=== PATIENT | female | born 1955 | race Caucasian/White ===

== ENCOUNTER 2016-08-09 06:23 | Day surgery (SDC) | payer OTHER ==
[2016-08-09] VITALS (13 sets, daily range): BP systolic 100–130; BP diastolic 60–80; PULSE 60–105; RESP 11–16; O2SAT 96–100
[~2016-08-09] VITALS: Ht 157.5 cm; Wt 70.5 kg
[~2016-08-09 06:23] MED LIST: ASA/1TAB3 PO; BISA-67 PO; CHOL100045 PO; CeFAZolin Inj 2 GM in IV Premix 1 EACH IV ONE; Lactated Ringer's 1,000 ML IV ONE; Phenazopyridine 97.5 mg Tablet PO ONE
[2016-08-09] MEDS ORDERED: Propofol 10,000 mCg/mL 20 mL Inj ONE (06:24)
[2016-08-09] MEDS ORDERED: Ondansetron 2 mg/mL 2 mL Inj ONE (06:24)
[2016-08-09] MEDS ORDERED: fentaNYL-PF 50 mCg/mL 2 mL Inj ONE (06:24)
[2016-08-09] MEDS ORDERED: Dexamethasone 4 mg/mL Inj ONE (06:24)
--- NOTE | 2016-08-09 08:16 | PCM.HPANE ---
Patient Data Surgeon Admitting Provider: Attending Provider:Adilson Jimenez MD Primary Care Physician:Brianda Solorio MD Other Provider:[facility] Reason for Visit Cystocele,Vault Prolapse,Rectocele,Stress Incontin Ht/WT & BMI Height (Feet): 5 Height (Inches): 2.00 Weight (Kilograms): 70.5 Body Mass Index 28.00 Allergies Coded Allergies: codeine (Verified Adverse Reaction, Severe, NAUSEA, 08/04/16) erythromycin base (Verified Adverse Reaction, Severe, Nausea, 08/04/16) Past Anesthesia History Anesthesia History: Denies:: Abnormal Airway, Anesthesia Reactions, Difficult Intubation, Fam Anesthesia Reaction, Fam Malignant Hypertherm, Malignant Hyperthermia Diabetes History Hx Diabetes?: No MRSA MRSA: No Medications Home Meds Incl Beta Paul: No Reported Medications Cholecalciferol (Vitamin D3) (Vitamin D)1,000 Unit Capsule1,000 Unit PO DAILY # 1 BOTTLE Ref 0 08/04/16 ASA/Acetaminophn/Mag/Alh/Caff (Vanquish Caplet)1 Each Tablet1 Each PO DAILY PRN PRN 08/04/16 Bisacodyl (Dulcolax)5 Mg Tablet.dr5-10 Mg PO DAILY PRN For Constipation Ref 0 08/04/16 Discontinued Reported Medications Zoster Vaccine Live/Pf (Zostavax Vial)19,400 Unit Vial19,400 Unit SQ 11/18/14 [vitamin d] No Conflict Check 11/18/14 Multivitamin with Minerals (Multiple Vitamin)1 Each Tablet1 Each PO DAILY 11/18/14 Calcium Carbonate (Calcium)600 Mg [id number] Mg PO DAILY 11/18/14 History History of ENT Problems?: Yes HEENT History: Denies:: Abnormal Airway Difficult Intubation Dysphagia Hearing Problem Other HEENT Pertinent History: S/P TONSILLECTOMY Hx of Heart Problems?: Yes Cardiovascular History: Denies:: AICD Heart Murmur Hypertension (HYPERLIPIDEMIA) Pacemaker Valvular Heart Disease Hx of Respiratory Problem?: No Respiratory History: Positive for:: Use of C-PAP Machine (GAVIOTA+ W/ CPAP SLEEP STUDY 01/2011) Hx Neurologic Problems?: Yes Neurological History: Positive for:: Headaches Denies:: CVA Hx of GI Problems?: Yes Gastrointestinal History: Denies:: Diverticulitis (DIVERTICULOSIS) Gastroesphageal Reflux Rectal Bleeding Hx of Problems?: Yes Other Pertinent History: ATROPHIC VAQGINITIS Female Hx: Positive for:: Problems with Breasts? (S/P BREAST BX'S X4 FOR FIBROCYSTIC DISEASE) Denies:: Currently Skin History: Positive for:: History Skin Disorders? (S/P EXC SQUAMOUS CELL CA CHEST) Denies:: Pressure Ulcers Hx Musculoskeletal Problems?: Yes Musculoskeletal History: Positive for:: Musculoskeletal Trauma (HX "FROZEN" SHOULDER) Hx of Psycho/Social Problems?: No Hx Surgeries?: Yes (VAG. HYST,BREAST BX X4,EXC SCC,TONSILLECTOMY) Hx Any Other Health Problems?: Yes Other History: Positive for:: Cancer (SQUAMOUS CELL CA-CHEST) Thyroid Disease (HX THYROID NODULE) Denies:: Hospitalization History Blood Transfusions: Positive for:: Accept Blood Products? Denies:: Blood Transfusions Hx Diabetes: No Hx Alcohol Use: YesAlcoholic Drinks Per Day: 3/WEEKHx Substance Use: No Smoking Status: Never Smoker Have You Smoked inLast 12 mo: No Stop/Bang Do You Have a CPAP Machine?: Yes S-Snoring: Do You Snore Loudly: No T-Tired: feel tired, fatigued: No O-Obsered: Observed not breath: No P-Blood Pressure: treated: No B- Body Mass Index > 35 kg/m2: No A- Age over 50: Yes N- Neck Large Circumference: No G- Gender Male: No GAVIOTA Total Score: 1 GAVIOTA Category 1: Yes Risk Assessment Category Category 1A: Patient has history of documented sleep apnea, and HAS NOT received any narcotic, sedative or anesthesia administration during this stay. Category 1B: Patient has history of documented sleep apnea, and HAS received any narcotic , sedative or anesthesia administration during this stay Category 2: Patient has SUSPECTED Obstructive Sleep Apnea, and HAS received any narcotic , sedative or anesthesia administration during this stay. Category 3: Patient has SUSPECTED Obstructive Sleep Apnea and HAS NOT received narcotic, sedative or anesthesia administration during this stay. Category 4: Outpatient in Procedural Areas with known sleep apnea or who screen positive for High Risk via the STOP/BANG questionnaire. Exam Exam Vital Signs Vital Signs Date Time Temp Pulse Resp B/P Pulse Ox O2 Delivery O2 Flow Rate FiO2 08/09/16 06:44 CPAP/BIPAP 08/09/16 06:43 36.4 60 16 125/70 100 Room Air General Appearance: Alert HEENT/AIRWAY: MP 1 Lungs: Clear to Auscultation Heart: Exam Unremarkable Meds/Labs/Diagnostics Admission Meds Current Medications Phenazopyridine HCl 2 tab 2 tab PREOP ONCE PO Last administered on 08/09/16 07:56; Start 08/09/16 at 06:00; Stop 08/09/16 at 06:01; Status DC Lactated Ringer's (Lr) 1,000 ml @ ud STK-MED ONCE IV Last administered on 08/09 05:59; Start 08/09/16 at 05:59; Stop 08/09/16 at 06:00; Status DC Plan Impression Patient chart reviewed, patient interviewed and anesthestic plan with risks, benefits, and alternatives discussed, and informed consent obtained. NPO Status: 08/07 ASA Physical Status: ASA1 Normal Healthy Anesthetic Plan: GA Bene/Risks/Altern/Consents: Yes HP Complete Prior to Induction: Yes Hugo Stephens MD Aug 09, 2016 08:16
[2016-08-09] MEDS ORDERED: Lactated Ringer's 500 ML IV PRN (08:24)
[2016-08-09] MEDS ORDERED: Lactated Ringer's 1,000 ML IV SCH (08:24)
[2016-08-09] MEDS ORDERED: Labetalol 5 mg/mL 4 mL Inj IV PRN (08:25)
[2016-08-09] MEDS ORDERED: fentaNYL-PF 50 mCg/mL 2 mL Inj IVPUSH PRN (08:25)
[2016-08-09] MEDS ORDERED: Phenylephrine 10,000 mCg/mL Inj IVPUSH PRN (08:25)
[2016-08-09] MEDS ORDERED: HYDROmorphone 1 mg/mL Inj IVPUSH PRN (08:25)
[2016-08-09] MEDS ORDERED: Atropine 0.4 mg/mL Inj IVPUSH PRN (08:25)
[2016-08-09] MEDS ORDERED: Ondansetron 2 mg/mL 2 mL Inj IVPUSH PRN (08:25)
[2016-08-09] MEDS ORDERED: EPHEDrine Sulfate 50 mg/mL Inj IVPUSH PRN (08:25)
[2016-08-09] MEDS ORDERED: MetoCLOpramide 5 mg/mL 2 mL Inj IVPUSH PRN ×2 (08:25→12:40)
[2016-08-09] MEDS ORDERED: Dexamethasone 4 mg/mL Inj IVPUSH PRN (08:25)
[2016-08-09] MEDS ORDERED: Lidocaine 1%-Epi 1:100,000 20 mL Inj INFILTRATE ONE (08:54)
[2016-08-09] MEDS ORDERED: Sodium Chloride LOK Flush 10 mL Syringe XX ONE (09:05)
[2016-08-09] MEDS ORDERED: Gentamicin 40 mg/mL 2 mL Inj IRRIGATION ONE ×2 (09:05→11:37)
[2016-08-09] MEDS ORDERED: Lactated Ringer's 1,000 ML IV ONE (11:17)
[2016-08-09] MEDS ORDERED: Gentamicin 40 mg/mL 2 mL Inj IV ONE ×2 (11:38)
[2016-08-09] MEDS ORDERED: Estrogens Conjugated 30 Gm Vaginal Cream VAGINAL ONE (12:16)
--- NOTE | 2016-08-09 12:30 | PCM.ANEP1 ---
Post Anesthesia Phase 1 PACU Phase 1 Assessment Vital Signs Vital Signs Date Time Temp Pulse Resp B/P Pulse Ox O2 Delivery O2 Flow Rate FiO2 08/09/16 06:44 CPAP/BIPAP 08/09/16 06:43 36.4 60 16 125/70 100 Room Air Anesthetic Administered: GA Level of Alertness: Awake, talking JAQUEZ's with Equal Strength: Yes Pain: Yes Nausea or Vomiting: No Oxygen Delivery: Simple Mask Lungs: Clear to Auscultation Dermatome Level: Full Sensation Summary t 36 p74 sat 100 rr15 bp 108/67 Hugo Stephens MD Aug 09, 2016 12:30
[2016-08-09] MEDS ORDERED: Alum-Mag Hydrox-Simeth 30 mL Suspension PO PRN (12:40)
[2016-08-09] MEDS ORDERED: diphenhydrAMINE 25 mg Capsule PO PRN (12:45)
[2016-08-09] MEDS: Lactated Ringer's 1,000 ML IV SCH ×2 (13:55→21:42)
[2016-08-09] MEDS: Ondansetron 2 mg/mL 2 mL Inj IVPUSH PRN (16:21)
[2016-08-09] MEDS: Acetaminophen IV 1,000 MG in IV Premix 1 EACH IV SCH ×2 (16:22→18:40)
--- NOTE | 2016-08-09 16:55 | PCM.ANEP2 ---
Post Anesthesia Evaluation ASA/CMS Post Anesthesia VS in Patient's Normal Range?: Yes Resp Stable; Airway Patent?: Yes CV Function & Hydration Stable: Yes Mental Status Recovered?: Yes Pain control Satisfactory?: Yes N/V Control Satisfactory?: Yes Hugo Stephens MD Aug 09, 2016 16:55
--- NOTE | 2016-08-09 19:35 | NUR ---
Arrival to 1001 Pt transferred to 1001 at 1350 from PACU. Pt denies pain at this time and only complains of being cold and shivering. Warm blankets applied and Kpad placed on abdomen. Vaginal packing is in place with no drainage. Pt is alert and oriented and JAQUEZ with equal strength. Syed patent and draining to gravity orange urine.
--- NOTE | 2016-08-09 20:08 | PCM.SURGOP ---
Surgical Operative Report Date of Service: Aug 09, 2016 Pre Operative Diagnosis 1, Vaginal vault prolapse 2. Stress incontinence in female N39.3 (625.6): urodynamic stress incontinence. 3. Cystocele, midline N81.11 (618.01): 4. Rectocele N81.6 (618.04): Post Operative Diagnosis 1. Stress incontinence in female N39.3 (625.6): urodynamic stress incontinence. 2. POPQ stage 2 Vaginal vault prolapse/enterocele/Cystocele/Rectocele 3. Deficient pubocervical/pubovesical fascia Procedure: 1. anterior repair with Xenform graft augmentation 2. posterior repair 3. high uterosacral ligament vaginal vault suspension and enterocele repair 4. TVT-obturator sling and cystoscopy Surgeon and Cuff Stitcher: Surgeon: Adilson Jimenez MD Assistants: Nicolasa Iglesias MD Indication for Procedure Her assessment to date includes: 1. Vaginal vault prolapse 2. Stress incontinence in female N39.3 (625.6): urodynamic stress incontinence. 3. Cystocele, midline N81.11 (618.01): 4. Rectocele N81.6 (618.04): The patient is a candidate for surgical management in the form of anterior repair and posterior repair with possible biologic graft augmentation, with possible high uterosacral ligament vaginal vault suspension and enterocele repair and TVT-obturator sling. The patient signed the consent form. She agreed with the risks, benefits, and alternatives to surgery. The risks included but not limited to recurrence or persistence of prolapse, recurrence of persistence of incontinence, development of voiding dysfunction, development of urinary urgency, urgency incontinence, frequency, and need for intermittent self-catheterization or prolonged indwelling catheterization, injury to other organs including bladder, bowel, nerves or blood vessels. Need for blood transfusion, need for temporary colostomy or urinary stenting. Development of vaginal scarring, dyspareunia, defecatory dysfunction, recurring pain, hematoma formation, urinary tract infection, cellulitis, necrotizing fascitis, and medical risks including myocardial infarction, stroke or VTE. She also understood the FDA warnings associated with the use of vaginal mesh (dysparunia, vaginal erosion, erosion into bowel/bladder/urethra, requiring further surgery to correct these complications). The patient understood the risks and benefits and consented to surgery. Findings: see dictation Procedure Details SURGICAL TECHNIQUE: The patient was brought to the operating room and was placed under general anesthesia. She was prepped and draped in the normal fashion for vaginal surgery with the legs in Yellofin stirrups. Also, her hips were allowed to deflex periodically during the case to avoid any pressure on the nerves and lower limb joints. She was given a dose of IV Ancef intraoperatively. She was given 200 mg oral pyridium prior to surgery. EUA revealed a POPQ stage 2 anterior, apical and posterior vaginal prolapse to the hymen. Also the vaginal caliber allowed the insertion of 2 gloved fingers spread apart. 1. Anterior colporrhaphy with Xenform graft augmentation: Lidocaine 0.5% with 1 /21257 epinephrine was infiltrated along the anterior vaginal wall mucosa. A midline vertical incision was made through the anterior vaginal wall. The vaginal wall was dissected off the underlying pubocervical and pubovesical fascia. The dissection was extended laterally beyond the ischiopubic rami. Bilateral paravaginal defects were noted. It was noted that the pubocervical and pubovesical fascial tissues were deficient. During the dissection along the apex, an enterocele sac was entered with sharp dissection. This was aided with the use of a gloved finger in the rectum to avoid penetrating the rectal mucosa. The rest of the anterior repair would be completed later in the procedure. 2. High uterosacral ligament vaginal vault suspension and enterocele repair, cystoscopy: Several mini laparotomy sponges were packed to retract the bowel upwards. A pair of Allis clamps were placed along the intraperitoneal portions of the vagina at the 5 and 7 o'clock positions. Tension along these Allis clamps allowed for identification of the uterosacral ligaments bilaterally. The ureters were palpated to avoid penetrating them. A pair of 0 Vicryl sutures were passed around the uterosacral ligaments of the level of the ischial spines bilaterally, totalling 4. Cystoscopy was performed while tension was placed on the vault sutures. Cystoscopy revealed the presence of spillage of pyridium-stained urine at both ureteric orifices despite applying tension along the uterosacral ligament sutures. Next, one 3-0 Prolene suture was placed transversely through the cul-de-sac peritoneum. This was performed while using a gloved finger in the rectum as to avoid penetrating the underlying rectal mucosa. Tying these sutures obliterated the enterocele. The remainder of the anterior repair was then completed as follows: The cystocele was plicated in 2 layers, the first layer with 2-0 Vicryl suture in interrupted fashion, the second layer with 2-0 Tycron suture in an interrupted fashion. Bleeding along the right paravaginal space was controlled using 2-0 vicryl suture. A trapezoidal piece of Xenform graft was then incorporated atop the plicated area far laterally. The graft was secured far laterally into the obturator internus membrane. At the level of the bladder neck, an upside down triangular piece of graft was excised so that there was no excessive-support along the level of the bladder neck. Apically, the graft was passed through the proximal uterosacral ligament sutures. No anterior vaginal mucosa was required to be excised. The high uterosacral ligament vaginal vault suspension sutures were passed through the planned apex of the vagina. The vagina was then reapproximated using 3-0 Vicryl suture in a running locked fashion. The high uterosacral ligament vaginal vault suspension sutures were tied and this elevated the apex of the vagina high up into the hollow of the sacrum. 3. Posterior colpoperineorrhaphy: Examination under anesthesia revealed that the posterior segment descended to the hymen (POPQ Stage 2). Lidocaine 0.5% with 1:50,000 of epinephrine was infiltrated along the posterior vaginal wall mucosa. A midline incision was made through the posterior vagina with a scalpel (no incision was made through the perineum. A perineorrhaphy was not necessary). 100 mg IV gentamicin was given as stool was expelled through the anus. The area was irrigated with copious fluid. The vaginal mucosa was dissected off the underlying rectovaginal tissues. It was noted the rectovaginal fascial tissues were not thin and deficient. The rectocele was plicated in one layer using 2-0 Vicryl suture in an interrupted fashion. No excess posterior vaginal mucosa needed to be excised. The vagina was then reapproximated using 3-0 Vicryl suture in a running locked fashion. 4. Tension-free vaginal tape obturator sling and cystoscopy: Lidocaine 0.5% with 1/93954 epinephrine was infiltrated along the anterior vaginal wall mucosa at the level of the mid urethra. Midline vertical incision was made at that level, 2 periurethral tunnels were created with Metzenbaum scissors. Two stab incisions were created at the skin at the groin at a level 2 cm superior to the external urethral meatus and 2 cm lateral to the fold created between the vulva and thigh. Syed catheter had already been inserted. A butterfly guide was inserted into the right periurethral tunnel, a curved helical needle was inserted on top of the guide and rotated out to the ipsilateral skin incision. The same procedure was performed on the contralateral side. Next the Syed catheter was removed. Cystoscopy was performed. There was no inadvertent penetration of the sling to the vagina, urethra or bladder. In addition, the ureteric orifices were noted bilaterally and were noted to be functional by the brisk spillage of pyridium-stained urine. The bladder appeared normal. The plastic sheaths of the sling were removed. The bladder was filled with 300 mL of sterile water. Using the Crede maneuver, sling tension was appropriately adjusted. Also a larger right angle clamp was allowed to easily pass behind the sling so that the sling was placed in a tension-free manner. The sling ends were cut at the level of the skin. The skin was reapproximated using Mastisol, Steri-Strips and band-aids. The vagina was reapproximated using 3-0 Vicryl suture in a running fashion. EUA revealed that the vaginal caliber allowed the insertion of 2 gloved fingers spread apart. The caliber was not any more narrow than that at the beginning of the case. The vagina was packed with Premarin-lubricated gauze. The estimated blood loss was approximately 350 mL. There were no complications All sponges and instruments were accounted for. The patient was taken to the recovery room in stable condition. Complications There were no periprocedural complications identified. Surgical Specimen Removed: No Specimen sent to Pathology: No Anesthetic Plan: GA Grafts, Implants: Grafts-See Implant Record, Implants-See Implant Record Output, Estimated Blood Loss: 350 (ml) Blood Administration during castro: No Drains: None Catheters: Urethral 2 Way Syed Post Operative Plan overnight stay in bed as outpatient as she requires a voiding trial in the am copies to: Nicolasa Iglesias MD; Brianda Solorio MD; Adilson Jimenez MD, William Andre Z MD Aug 09, 2016 20:08
[2016-08-09] MEDS: oxyCODONE-Acetamin 5-325 mg Tablet PO PRN (22:29)
[2016-08-10 00:44] VITALS: BP 97/60; PULSE 108; RESP 16; O2SAT 97
[2016-08-10] MEDS: Acetaminophen IV 1,000 MG in IV Premix 1 EACH IV SCH (01:23)
--- NOTE | 2016-08-10 04:16 | NUR ---
Pain Patient denies pain at this time, given IV Tylenol and Percocet one tab. Minimal drainage noted. Sleeping comfortably through out shift. Voiding trial to be done at 1000 this am .
[2016-08-10 04:19] VITALS: BP 99/62; PULSE 101; RESP 16; O2SAT 96
[2016-08-10] MEDS: Lactated Ringer's 1,000 ML IV SCH ×2 (04:38→09:19)
[2016-08-10 05:21] LABS: BASOPHILS % (AUTO) 0.1 % (0-3); EOSINOPHILS % (AUTO) 0 % (0-5); MONOCYTES % (AUTO) 9.6 % (4-12); Mean Corpuscular Hemoglobin 29.3 pg (27.0-35.0); Mean Corpuscular Volume 90.8 fL (81-100); NEUTROPHILS % (AUTO) 69.2 % (40-74); Platelet Count 171 bil/L (150-400)
[2016-08-10] MEDS: oxyCODONE-Acetamin 5-325 mg Tablet PO PRN ×2 (06:17→12:55)
[2016-08-10] MEDS ORDERED: Senna-Docusate 8.6-50 mg Tablet PO SCH (08:30)
[2016-08-10] MEDS ORDERED: Heparin 5,000 Unit/mL Inj SUBQ SCH (08:30)
[2016-08-10 09:04] VITALS: BP 106/69; PULSE 94; RESP 16; O2SAT 96
[2016-08-10] MEDS: Ondansetron 2 mg/mL 2 mL Inj IVPUSH PRN (09:35)
[2016-08-10 10:38] VITALS: BP 119/76
[2016-08-10 10:39] VITALS: BP_SYST 111; BP_SYST 120; BP_DIAS 73; BP_DIAS 75
--- NOTE | 2016-08-10 11:11 | PCM.PNSURG ---
Subjective Date of Service: Aug 10, 2016 Date of Service: Aug 10, 2016 Visit Information: Reason for Visit Cystocele,Vault Prolapse,Rectocele,Stress Incontin Surgery/Surgery Date ANTERIOR/POSTERIOR REPAIR 08/09/16 Post-Op Day # 1 Subjective: AVSS sitting up to side of bed nausea when trying to ambulate this am - just given Zofran pain control - good with Percocet 1 tab q4h prn sips/liquid tolerated OR explained Pain Management: PO Objective Vital Sign- Last 8 Hours Date Time Temp Pulse Resp B/P Pulse Ox O2 Delivery O2 Flow Rate FiO2 08/10/16 10:39 120/75 08/10/16 10:39 111/73 08/10/16 10:38 119/76 08/10/16 09:04 36.8 94 16 106/69 96 08/10/16 04:51 CPAP/BIPAP 08/10/16 04:19 36.7 101 16 99/62 96 Room Air Intake and Output- Last 8 Hour 08/10/16 Cumulative From/Thru 07:00 08/04/16 17:10 - 08/10/16 05:58 Intake Total 920 ml 4396 ml Output Total 1325 ml 3055 ml Balance -405 ml 1341 ml Intake Oral 400 ml 600 ml IV Total 520 ml 3796 ml Output Urine Total 1325 ml 2355 ml Estimated Blood Loss 700 ml # Bowel Movements 0 0 General: Alert, Oriented X3, Cooperative Lungs: Clear to Auscultation Abdomen: Benign Catheters: Urethral 2 Way Syed Result Diagram: 08/10/16 050 Assessment & Plan Impression Iron-deficiency anemia secondary to blood loss Post-op nausea POD#1, otherwise stable Problems: Plan Repeat H&H at 11 am - start iron pills once BM's established voiding trial once ambulating well maximize nausea treatment discharge later today once stable VTE Prophylaxis: Sub-Q Heparin (Unfractionated) Resuscitation Status: CPR: Attempt Resuscitation copies to: Adilson Jimenez MD, William Andre Z MD Aug 10, 2016 11:11
--- NOTE | 2016-08-10 11:18 | PCM.DIGYN ---
Surgical Discharge Instruction Dates of Hospitalization Date of Hospital Admission 317 overnight stay in bed for observation Providers Admitting Physician: Primary Care Physician: Brianda Solorio MD Attending Physician: Adilson Jimenez MD Diagnosis at Time of Discharge Diagnosis at time of discharge 1. Stress incontinence in female N39.3 (625.6): urodynamic stress incontinence. 2. POPQ stage 2 Vaginal vault prolapse/enterocele/Cystocele/Rectocele 3. Deficient pubocervical/pubovesical fascia 4. iron-deficiency anemia secondary to blood loss Post-operative diagnosis 1. Stress incontinence in female N39.3 (625.6): urodynamic stress incontinence. 2. POPQ stage 2 Vaginal vault prolapse/enterocele/Cystocele/Rectocele 3. Deficient pubocervical/pubovesical fascia Problems: Diet Discharge Diet: No restrictions Activity Discharge Activity-General: Restrict lifting to no greater than (10lbs for 6 wk ) Dressing and Incisional Care Dressing Care: Allow Steri Stripes to fall off Hygiene: May shower Follow Up Plan Follow-up appointment: Weeks Call your provider for: Fever, Chills, Shortness of breath, Vomitting, Heavy vaginal bleeding, Wound redness, Increasing pain Adilson Jimenez MD Aug 10, 2016 11:18
[2016-08-10 13:10] VITALS: BP 123/73; PULSE 91; RESP 18; O2SAT 96
--- NOTE | 2016-08-10 20:28 | NUR ---
D/C Pt d/c'd with spouse via wheelchair at 1600. Pt left with gutiérrez catheter in place and plugged. Hard copies of Rx with pt, IV D/C'd intact, vaginal packing removed, all pt belongings with pt, pt signed and stated understanding of d/c information including catheter care.
== END 2016-08-10 16:35 | disposition home or self-care (01) ==
LOC: SAS 06:23 → OSC 13:55 → SAS 08-10 16:35
PROVIDERS: ATTEND Obstetrics & Gynecology
DX: N99.3 Prolapse of vaginal vault after hysterectomy (principal); N39.3 Stress incontinence (female) (male); R14.3 Flatulence; G47.33 Obstructive sleep apnea (adult) (pediatric); E78.00 Pure hypercholesterolemia, unspecified; G25.81 Restless legs syndrome; N95.2 Postmenopausal atrophic vaginitis; E78.5 Hyperlipidemia, unspecified; K21.9 Gastro-esophageal reflux disease without esophagitis; K57.30 Diverticulosis of large intestine without perforation or abscess without bleeding; Z90.710 Acquired absence of both cervix and uterus
CPT/HCPCS: 36415; 57265; 57267; 57283; 57288; 85014; 85018; 85025; 86850; 96374; 96375; C1763; C1771; J0131; J0690; J1100; J1580; J1644; J2250; J2270; J2405; J2765; J3010; J7120

== ENCOUNTER 2016-09-07 00:25 | Emergency (ER) | payer OTHER ==
[~2016-09-07] VITALS: Ht 157.5 cm; Wt 69.1 kg
[~2016-09-07 00:25] MED LIST changes: -CeFAZolin Inj 2 GM in IV Premix 1 EACH IV ONE; -Lactated Ringer's 1,000 ML IV ONE; -Phenazopyridine 97.5 mg Tablet PO ONE
[2016-09-07 00:27] VITALS: BP 123/77; PULSE 79; RESP 16; O2SAT 97
--- NOTE | 2016-09-07 00:29 | ED.REPORT ---
HPI-Abd Pain F 40 and Over Date of Service Sep 07, 2016 ED Provider: Eliceo Carballo MD 60 year old female presents to the ER accompanied by her complaining of dysuria onset today. Associated symptoms include urinary frequency and foul smelling urine. Patient denies fever or chills. She had a bladder sling placed recently and had her catheter removed 4 days ago. She has been on a course of Macrodantin that she was told to cease with catheter removal. Nursing Notes Stated Complaint: UTI Chief Complaint: Female Abdominal Pain Nursing Notes Reviewed: Yes Allergies: Coded Allergies: codeine (Verified Adverse Reaction, Severe, NAUSEA, 09/07/16) erythromycin base (Verified Adverse Reaction, Severe, Nausea, 09/07/16) Scheduled Cefuroxime Axetil (Cefuroxime) 500 Mg Tablet 500 MG PO BID Cholecalciferol (Vitamin D3) (Vitamin D) 1,000 Unit Capsule 1,000 UNIT PO DAILY Scheduled PRN ASA/Acetaminophn/Mag/Alh/Caff (Vanquish Caplet) 1 Each Tablet 1 EACH PO DAILY PRN PRN PRN Bisacodyl (Dulcolax) 5 Mg Tablet.dr 5-10 MG PO DAILY PRN PRN For Constipation Phenazopyridine (Phenazopyridine) 200 Mg Tablet 200 MG PO TID PRN PRN dysuria General Time Seen by MD: 00:29 Chief Complaint Dysuria Hx Obtained From: Patient Arrived By: Walk-in Sudden in Onset?: No Onset Occurred: 9 - 12 hours ago Associated with: Reports: Urinary frequency, Denies: Fever Recent Healthcare: Recent doctor visit Similar Sx Previous: No Past Medical History Past Medical History Squamous cell CA chest Thyroid disease Past Surgical History Bladder sling Reports: Hysterectomy Smoking History Never Smoker Social History Alcohol Use: 1-3 per week Ambulatory Status Independent Review of Systems +Foul Smelling Urine Constitutional: Denies: Chills, Fever GI: Denies: Abdominal pain, Diarrhea, Nausea, Vomiting Female: Reports: Dysuria, Urinary frequency Complete sys rev & neg: except as marked. Physical Exam Vital Signs Vital Signs (First) Date Time Temp Pulse Resp B/P Pulse Ox O2 Delivery O2 Flow Rate FiO2 09/07/16 00:27 36.2 79 16 123/77 97 Room Air Initial VS: Reviewed Head / Eyes: Atraumatic, Normocephalic Neck: Supple, Non-tender, Full range of motion Extremities: Vascular intact, Neuro intact, No swelling, No tenderness Skin: Warm, Dry, No cyanosis Neurologic: Alert, Oriented, Nonfocal Psychiatric: Mood/affect normal, Behavior normal, Normal thought content General/Constitutional: Awake, Alert, Well developed, Well nourished Respiratory / Chest: Breath sounds NL, Breath sounds = bilat, No respiratory distress, No rales, No rhonchi, No wheezing, No stridor Cardiovascular: Heart rate NL, Regular rhythm, Heart sounds NL, Peripheral circulation NL Abdomen: Soft, Non-tender, No guarding, No rebound, No distention Back: Inspection NL, Non-tender, No CVA tenderness Interpretation & Diagnostics Lab Results Interpretation Result Diagram: 09/07/16 0120 09/07/16 0120 Test 09/07/16 01:05 09/07/16 01:20 Urine Color Straw (YELLOW) Urine Appearance Hazy (CLEAR,HAZY) Urine pH 7.5 (5.0-8.0) Urine Specific Sargeant 1.010 (1.003-1.035) Urine Protein Negativemg/dL (NEG,TRACE) Urine Glucose (UA) Negativemg/dL (NEGATIVE) Urine Ketones Negativemg/dL (NEGATIVE) Urine Occult Blood Trace (NEGATIVE) Urine Nitrite Negative (NEGATIVE) Urine Bilirubin Negative (NEGATIVE) Urine Urobilinogen Normalmg/dL (NORMAL) Urine Leukocyte Esterase Moderate (NEGATIVE) Urine RBC 3-10/hpf (0-2) Urine WBC >50/hpf (0-5) Urine Epithelial Cells Occasional/hpf (NONE-MOD) Urine Crystals None seen (NONE SEEN) Urine Bacteria Many/hpf (NONE-FEW) Urine Hyaline Casts None/lpf (NONE) Urine Granular Casts None seen (NONE SEEN) Urine Waxy Casts None seen (NONE SEEN) Urine Red Blood Cell Casts None seen (NONE SEEN) Urine White Blood Cell Casts None seen (NONE SEEN) Urine Mucus None seen (None Seen) Urine Trichomonas None seen (NONE SEEN) Urine Yeast None (NONE SEEN) Urinalysis Comment None Urine Culture Reflexed Indicated White Blood Count 9.3th/mm3 (3.8-10.1) Red Blood Count 4.03mil/mm3 (3.90-5.20) Hemoglobin 12.0g/dL (12.0-15.6) Hematocrit 36.9% (35.0-46.0) Mean Corpuscular Volume 91.6fL (81-100) Mean Corpuscular Hemoglobin 29.8pg (27.0-35.0) Mean Corpuscular Hemoglobin Concent 32.5% (32.0-37.0) Red Cell Distribution Width 13.4% (12.3-15.4) Platelet Count 248bil/L (150-400) Neutrophils (%) (Auto) 57.9% (40-74) Lymphocytes (%) (Auto) 33.2% (14-46) Monocytes (%) (Auto) 6.7% (4-12) Eosinophils (%) (Auto) 1.6% (0-5) Basophils (%) (Auto) 0.4% (0-3) Sodium Level 139mEq/L (134-144) Potassium Level 4.5mEq/L (3.5-5.2) Chloride Level 100mEq/L (97-108) Carbon Dioxide Level 24mmol/L (18-29) Blood Urea Nitrogen 18mg/dL (8-27) Creatinine 0.83mg/dL (0.57-1.00) Estimat Glomerular Filtration Rate 100mL/min (>59) Glucose Level 114mg/dL (60-99) Calcium Level 9.4mg/dL (8.5-10.1) Magnesium Level 2.3mg/dL (1.6-2.6) Total Bilirubin 0.3mg/dL (0.0-1.2) Aspartate Amino Transf (AST/SGOT) 19U/L (0-50) Alanine Aminotransferase (ALT/SGPT) 18U/L (0-32) Alkaline Phosphatase 80U/L (25-165) Total Protein 7.2g/dL (6.4-8.4) Albumin 4.4g/dL (3.4-5.0) Lipase 40U/L (13-60) Hold Pandya Top Tube Received (Received) Re-Eval/Medical Decision Med Decision/Clinical Course 60-year-old just post Syed removal after a bladder sling operation. She has unequivocal urinary tract infection by UA and consistent symptoms. No upper tract symptoms and no fever. Begun with 2 g load of Rocephin here, given that this was procedurally acquired infection. Continue with Ceftin twice a day pending cultures. Discharged in stable condition with Ceftin and Pyridium for comfort. Source of Hx: Old records Re-Evaluation/Progress : Time of Eval: 00:58 Re-Evaluation/Progress Note: Discussed plan to discharge pending lab results. Patient is amenable to the plan. Return precautions given. All other questions addressed. Counseled Regarding: Diagnosis, Lab results, Need for follow-up, When/why to return to ED Discharge & Departure Primary Impression: UTI (urinary tract infection) Disposition: Home Discharge Condition All VS Reviewed: Yes Condition: Stable Patient Instructions: Urinary Tract Infection in Women (DC) Additional Instructions: Ceftin twice daily. Pyridium three times daily if needed for discomfort. Follow-up with your surgeon in the office. Follow-up with your regular doctor also. Return if any immediate issues. Referrals: Brianda Solorio MD (PCP) Scribe Attestation Portions of this note were transcribed by Reno Zurita. I, Dr. Carballo, personally performed the history, physical exam and medical decision-making; I reviewed and confirmed the accuracy of the information in the transcribed note. Signed by: Delilah Swain, 09/07/2016 at 02:52 copies to: Brianda Solorio MD, Christopher W MD Sep 07, 2016 00:29 RENO ZURITA Sep 07, 2016 00:46
[2016-09-07] MEDS ORDERED: cefTRIAXone Inj 2,000 MG in Dextrose 5% Minibag Plus 50 ML IV ONE (01:00)
[2016-09-07] MEDS ORDERED: Phenazopyridine 97.5 mg Tablet PO ONE (01:20)
[2016-09-07 01:25] LABS: BASOPHILS % (AUTO) 0.4 % (0-3); EOSINOPHILS % (AUTO) 1.6 % (0-5); MONOCYTES % (AUTO) 6.7 % (4-12); Mean Corpuscular Hemoglobin 29.8 pg (27.0-35.0); Mean Corpuscular Volume 91.6 fL (81-100); NEUTROPHILS % (AUTO) 57.9 % (40-74); Platelet Count 248 bil/L (150-400)
[2016-09-07 01:30] LABS: APPEARANCE,URINE HAZY (CLEAR,HAZY); COLOR,URINE STRAW (YELLOW); OCCULT BLOOD,URINE TRACE (NEGATIVE); PH,URINE 7.5 (5.0-8.0); UROBILINOGEN,URINE NORMAL (NORMAL)
[2016-09-07] MEDS ORDERED: PHEN-777 PO (01:41)
[2016-09-07] MEDS ORDERED: CEFU500T61 PO (01:41)
[2016-09-07 01:57] LABS: Magnesium 2.3 mg/dL (1.6-2.6)
[2016-09-07 02:06] VITALS: BP 120/64; PULSE 74; RESP 14; O2SAT 99
== END 2016-09-07 02:07 | disposition home or self-care (01) ==
LOC: SED 00:25
DX: N39.0 Urinary tract infection, site not specified (principal); Z90.710 Acquired absence of both cervix and uterus; Z88.1 Allergy status to other antibiotic agents; Z88.5 Allergy status to narcotic agent; Z79.899 Other long term (current) drug therapy
CPT/HCPCS: 36415; 80053; 81000; 83690; 83735; 85025; 87077; 87086; 87088; 87186; 96365; 99284; J0696